=== PATIENT | female | born 1980 | race African-American/Black ===

== ENCOUNTER 2019-09-24 15:37 | Emergency (ER) | payer MEDICAID, OTHER ==
[~2019-09-24] VITALS: Ht 170.2 cm; Wt 83.0 kg
[2019-09-24 15:44] VITALS: BP 180/72
== END 2019-09-24 21:39 | disposition left against medical advice (07) ==
LOC: ER 15:59
DX: R10.9 Unspecified abdominal pain (principal); Z53.21 Procedure and treatment not carried out due to patient leaving prior to being seen by health care provider